=== PATIENT | male | born 1965 | race African-American/Black ===

== ENCOUNTER 2018-09-08 16:29 | Inpatient (IN) ==
[2018-09-08 16:13] LABS: Basophils % 0.1 % (0.0-0.8); Eosinophils # 0.1 10*3/uL (0.0-0.87); Eosinophils % 0.7 % (0.00-10.9); Hematocrit 32.8 VOL% (42.0-52.0); Hemoglobin 10.8 GM/DL (14.0-18.0); Immature Granulocytes % 0.4 %; Immature Granulocytes Absolute 0.04 #; Lymphocytes # 1.5 10*3/uL (1.4-4.0); Lymphocytes % 16.1 % (21.2-54.2); Mean Corpuscular HGB Conc 32.9 GM/DL (32-36); Mean Corpuscular Hemoglobin 27 PG (27-34); Mean Corpuscular Volume 82.2 FL (87-102); Mean Platelet Volume 9.2 FL (9.6-12.0); Monocytes # 0.7 10*3/uL (0.11-0.8); Monocytes % 7.6 % (1.7-12.7); Neutrophils # 6.8 10*3/uL (1.4-7.4); Neutrophils % 75.1 % (38.7-73.9); Platelet Count 233 T/CUMM (130-400); Red Blood Count 3.99 MC/CUMM (3.8-5.5); Red Cell Distribution Width 15.9 % (9.3-17.3)
[~2018-09-08 16:29] MED LIST: ACETAMINOPHEN 325 MG TABLET PO PRN; ENOXAPARIN 60 MG/0.6 ML SYRINGE ONE; EPTIFIBATIDE 0 MG/0 ML BOTTLE IV ONE; EPTIFIBATIDE 20,000 MCG/10 ML VIAL ONE; HEPARIN/NACL 0.9% 2 UNITS/ML 1,000 ML IV ONE; LIDOCAINE 1% 20 ML VIAL ONE; MIDAZOLAM 2 MG/2 ML VIAL ONE; NITROGLYCERIN DRIP 50 MG/250 ML BOTTLE IV ONE; ONDANSETRON 4 MG/2 ML VIAL IV PRN; VERAPAMIL 5 MG/2 ML VIAL ONE; ZALEPLON 5 MG CAPSULE PO PRN; diphenhydrAMINE 50 MG/1 ML VIAL ONE; diphenhydrAMINE CAP 25 MG CAPSULE PO PRN; fentaNYL 100 MCG/2 ML VIAL ONE
[2018-09-08] MEDS ORDERED: PANTOPRAZOLE 40 MG VIAL IV ONE ×2 (16:34→16:58)
[2018-09-08] MEDS: SODIUM CHLORIDE 0.9% 1,000 ML IV SCH (16:57)
[2018-09-08] MEDS: PANTOPRAZOLE 40 MG TABLET PO SCH (16:58)
[2018-09-08 17:20] LABS: Calcium 7.5 MG/DL (8.5-10.1); Osmolality,Calculated 279.4 MOS/KG (273-304); Potassium 3.2 MMOL/L (3.5-5.1); Risk Ratio 4.19; VLDL CHOLESTEROL 14.4 MG/DL
[2018-09-08] MEDS: TICAGRELOR 90 MG TABLET PO SCH (20:24)
[2018-09-08] MEDS: CARVEDILOL 3.125 MG TABLET PO SCH (20:24)
[2018-09-08] MEDS: ATORVASTATIN 80 MG TABLET PO SCH (20:24)
[2018-09-08 23:43] LABS: Apearance,Urine CLEAR (Clear); Bilirubin,Urine Negative (Negative); Blood, Urine Small mg/dL (Negative); Glucose,Urine (UA) Negative (Negative); Ketones,Urine Negative (Negative); Nitrite,Urine Negative (Negative); Protein,Urine Negative; RBC,Urine 8 /HPF (0-4); Urine Color Yellow (Yellow); Urine Specific Gravity 1.049 (1.001-1.035); Urine Urobilinogen < 2.0 EU/DL (0.2-1.0); WBC,Urine 14 /HPF (0-6)
[2018-09-09] MEDS: SODIUM CHLORIDE 0.9% 1,000 ML IV SCH ×2 (03:21→13:31)
[2018-09-09 04:42] LABS: Albumin 3.2 G/DL (3.4-5.0); Bilirubin,Total 1.2 MG/DL (0.2-1.0); Calcium 7.9 MG/DL (8.5-10.1); Osmolality,Calculated 277.4 MOS/KG (273-304); Potassium 3.8 MMOL/L (3.5-5.1); Thyroid Stimulating Hormone 0.877 uIU/ml (0.358-3.74); Total Protein 6.3 G/DL (6.4-8.3)
[2018-09-09] MEDS: TICAGRELOR 90 MG TABLET PO SCH ×2 (08:08→20:03)
[2018-09-09] MEDS: ASPIRIN EC 81 MG TABLET PO SCH (08:08)
[2018-09-09] MEDS: LOSARTAN 25 MG TABLET PO SCH (08:08)
[2018-09-09] MEDS: CARVEDILOL 3.125 MG TABLET PO SCH ×2 (08:08→20:03)
[2018-09-09] MEDS: PANTOPRAZOLE 40 MG TABLET PO SCH (08:08)
[2018-09-09] MEDS: NICOTINE 21 MG/24 HR PATCH TRANSDERM SCH (10:20)
[2018-09-09] MEDS ORDERED: ALUMINUM/MAGNES/SIMETH MAX STR 30 ML UDCUP PO PRN (18:19)
[2018-09-09] MEDS ORDERED: MORPHINE 4 MG/1 ML VIAL IV PRN (18:19)
[2018-09-09] MEDS: ATORVASTATIN 80 MG TABLET PO SCH (20:03)
[2018-09-10 06:21] LABS: Albumin 3.4 G/DL (3.4-5.0); Bilirubin,Total 0.8 MG/DL (0.2-1.0); Calcium 8.6 MG/DL (8.5-10.1); Osmolality,Calculated 277.3 MOS/KG (273-304); Potassium 3.8 MMOL/L (3.5-5.1); Total Protein 6.8 G/DL (6.4-8.3)
[2018-09-10 08:17] VITALS: BP 113/84
[2018-09-10] MEDS: NICOTINE 21 MG/24 HR PATCH TRANSDERM SCH (09:12)
[2018-09-10] MEDS: PANTOPRAZOLE 40 MG TABLET PO SCH (09:13)
[2018-09-10] MEDS: CARVEDILOL 3.125 MG TABLET PO SCH (09:13)
[2018-09-10] MEDS: TICAGRELOR 90 MG TABLET PO SCH (09:13)
[2018-09-10] MEDS: ASPIRIN EC 81 MG TABLET PO SCH (09:13)
[2018-09-10] MEDS: LOSARTAN 25 MG TABLET PO SCH (09:13)
== END 2018-09-10 09:29 | disposition home or self-care (01) | DRG 247 ==
LOC: N.CL 16:29 → N.CC 16:31
PROVIDERS: ADMIT Internal Medicine Cardiovascular Disease; ATTEND Internal Medicine Cardiovascular Disease
PROC: CLCCHCL (ICD-10-PCS; 2018-09-08 15:15)